=== PATIENT | male | born 1975 | race Caucasian/White ===

== ENCOUNTER 2022-08-01 11:59 | Day surgery (SDC) | payer OTHER ==
[2022-08-01 12:26] VITALS: BMI 31.7
[2022-08-01 13:23] VITALS: TEMP 98
[2022-08-01 13:25] VITALS: BP 135/82; PULSE 64; RESP 18
== END 2022-08-01 13:35 | disposition home or self-care (01) ==
LOC: FASU-ENDO 11:59
PROVIDERS: ATTEND Internal Medicine Gastroenterology
PROC: 0DJD8ZZ Inspection of Lower Intestinal Tract, Via Natural or Artificial Opening Endoscopic (ICD-10-PCS; principal; 2022-08-01 12:50)
DX: Z12.11 Encounter for screening for malignant neoplasm of colon (principal)